=== PATIENT | female | born 1990 | race African-American/Black ===

== ENCOUNTER 2024-06-20 14:34 | Inpatient (IN) | payer OTHER ==
[~2024-06-20] VITALS: Ht 154.9 cm; Wt 61.7 kg
[2024-06-20 15:53] VITALS: TEMP 99
[2024-06-20 16:31] LABS: CLARITY,URINE HAZY (CLEAR); COLOR,URINE YELLOW (YELLOW)
[2024-06-20 16:32] LABS: BILIRUBIN,URINE NEGATIVE (NEGATIVE); GLUCOSE, URINE NEGATIVE (NEGATIVE); KETONES,URINE TRACE (NEGATIVE); LEUKOCYTE ESTERASE ,URINE NEGATIVE (NEGATIVE); NITRITE,URINE NEGATIVE (NEGATIVE); PH,URINE 6 (5 - 7); PROTEIN,URINE DIPSTICK TRACE (NEGATIVE); URINE UROBILINOGEN 1 mg/dL (0.2 - 1)
[2024-06-20 16:34] LABS: BACTERIA,URINE FEW /HPF; EPITHELIAL CELLS,URINE FEW /LPF; PREGNANCY TEST, URINE NEGATIVE (NEGATIVE)
[2024-06-20 16:52] LABS: ALBUMIN/GLOBULIN RATIO 1.1 (0.8-2.0); ANION GAP 12.9 mmol/L (8-16); BILIRUBIN,TOTAL 0.3 mg/dL (0.2-1.2); CALCIUM 9.3 mg/dL (8.4-10.2); CREATININE, SERUM 0.7 mg/dL (0.57-1.11); POTASSIUM 3.9 mmol/L (3.5-5.1); TOTAL PROTEIN 7.8 g/dL (6.5-8.1)
[2024-06-20] MEDS ORDERED: IOPAMIDOL 370 MG/ML 100 ML INFUS..BTL INJ ONE (16:53)
[2024-06-20 16:59] LABS: BASOPHILS % 0.5 % (0.0-1.0); EOSINOPHILS # (AUTO) 0.2 (0.0-0.4); EOSINOPHILS % 2.7 % (0.0-6.0); LYMPHOCYTES # (AUTO) 2.8 (1.0-3.2); LYMPHOCYTES % 31.5 % (18.0-39.1); MEAN CORPUSCULAR HEMOGLOBIN 16.3 pg (28-32); MEAN CORPUSCULAR HGB CONC 25.1 g/dL (31-35); MONOCYTES # (AUTO) 0.7 (0.2-0.8); MONOCYTES % 7.4 % (4.4-11.3); NEUTROPHILS % 57.6 % (38.7-80.0); RED BLOOD COUNT 3.37 x10e6/uL (3.6-5.1); RED CELL DISTRIBUTION WIDTH 27.9 % (11.7-14.4); WHITE BLOOD COUNT 8.74 x10e3/uL (4.8-10.8)
[2024-06-20 17:05] LABS: HEMATOCRIT 21.9 % (34.2-44.1); HEMOGLOBIN 5.5 g/dL (12.0-16.0); PLATELET COUNT 20 x10e3/uL (140-360)
[2024-06-20] MEDS: SODIUM CHLORIDE 0.9% 1000ML 1,000 ML IV ONE (17:06)
[2024-06-20 17:43] LABS: PLATELET CLUMPS FEW; PLATELET ESTIMATE MARKEDLY DECREASED
[2024-06-20 17:45] LABS: HYPOCHROMASIA MODERATE; PLATELET MORPHOLOGY COMMENT NORMAL
[2024-06-20 17:46] LABS: ANISOCYTOSIS MODERATE; MICROCYTOSIS MODERATE; POIKILOCYTOSIS MODERATE; TEAR DROP CELLS FEW
[2024-06-20 17:53] LABS: ROULEAU FEW
[2024-06-20 17:55] LABS: ELLIPTOCYTE, RBC SLIGHT; RBC MORPHOLOGY COMMENT ABNORMAL
[2024-06-20] MEDS ORDERED: ONDANSETRON HCL INJ 2MG/ML 2ML 2 MG/ML VIAL IV PRN (18:00)
[2024-06-20 18:16] LABS: % IRON SATURATION 5 % (15-50); IRON 27 ug/dL (50-170); TOTAL IRON BINDING CAPACITY 546 ug/dL (261-478); TRANSFERRIN 390 mg/dL (180-382)
[2024-06-20 18:30] VITALS: PULSE 60; RESP 16; RESP 20; O2SAT 100
[2024-06-20] MEDS: THIAMINE HCL INJ 100 MG/ML 2ML VIAL IV ONE (18:33)
[2024-06-20 18:52] LABS: FOLATE 6.8 ng/mL (7.0-15.4)
[2024-06-20 21:00] VITALS: BP 105/57; PULSE 70; RESP 18; TEMP 98.3; O2SAT 100
[2024-06-20 21:22] VITALS: BP 105/57; PULSE 70; RESP 18; TEMP 98.3; O2SAT 100
[2024-06-21] VITALS (10 sets, daily range): BP systolic 92–112; BP diastolic 61–86; PULSE 50–96; RESP 17–22; TEMP 98–98.5; O2SAT 97–100
[2024-06-21] MEDS ORDERED: MULTIVITAMINS- 12 INJECTION 10 ML, FOLIC ACID MDV 1 MG, THIAMINE HCL INJ 100 MG in SODI... IV SCH (01:30)
[2024-06-21] MEDS ORDERED: POTASSIUM CHLORIDE 20 MEQ TAB CR PO PRN (01:30)
[2024-06-21] MEDS ORDERED: HYDRALAZINE HCL 20 MG/ML VIAL IV PRN (01:30)
[2024-06-21] MEDS ORDERED: DEXTROSE 50% SYRINGE 50 ML IV PRN (01:30)
[2024-06-21] MEDS ORDERED: BENZONATATE 100 MG CAP PO PRN (01:30)
[2024-06-21] MEDS ORDERED: DOCUSATE SODIUM 100 MG CAP PO PRN (01:30)
[2024-06-21] MEDS ORDERED: ALBUTEROL/IPRATROPIUM 3 ML NEB NEB PRN (01:30)
[2024-06-21] MEDS ORDERED: MELATONIN 5 MG TABLET PO PRN (01:30)
[2024-06-21] MEDS ORDERED: SIMETHICONE 80 MG CHEW PO PRN (01:30)
[2024-06-21] MEDS ORDERED: DIPHENHYDRAMINE HCL 25 MG CAP PO PRN (01:30)
[2024-06-21] MEDS ORDERED: LIDOCAINE 4% PATCH TP PRN (01:30)
[2024-06-21] MEDS: MULTIVITAMINS- 12 INJECTION 10 ML, FOLIC ACID MDV 5 MG, THIAMINE HCL INJ 500 MG in SODI... IV SCH (01:45)
[2024-06-21] MEDS: Morphine 2mg Syringe 2 MG/ML SYR IV PRN (02:46)
[2024-06-21] MEDS: IRON SUCROSE 100 MG in SODIUM CHLORIDE 0.9% 100 ML IV SCH (05:04)
[2024-06-21] MEDS: FOLIC ACID/CYANOCOB/PYRIDOXINE TAB PO SCH (08:30)
[2024-06-21] MEDS: SODIUM CHLORIDE 0.9% 250ML 250 ML IV ONE ×2 (08:36)
[2024-06-21] MEDS ORDERED: MULTIVITAMINS- 12 INJECTION 10 ML, FOLIC ACID MDV 5 MG, THIAMINE HCL INJ 500 MG in SODI... IV SCH (10:00)
[2024-06-21] MEDS: MULTIVITAMINS- 12 INJECTION 10 ML, FOLIC ACID MDV 1 MG, THIAMINE HCL INJ 100 MG in SODI... IV SCH (10:26)
[2024-06-21] MEDS: SODIUM CHLORIDE 0.9% 250ML 250 ML ONE (14:10)
[2024-06-22] VITALS (9 sets, daily range): BP systolic 96–118; BP diastolic 67–82; PULSE 51–70; RESP 16–19; TEMP 98.1–98.4; O2SAT 95–100
[2024-06-22 00:49] LABS: BASOPHILS # (AUTO) 0.1 (0.0-0.1); BASOPHILS % 0.5 % (0.0-1.0); EOSINOPHILS # (AUTO) 0.5 (0.0-0.4); EOSINOPHILS % 4.5 % (0.0-6.0); HEMATOCRIT 32.9 % (34.2-44.1); LYMPHOCYTES # (AUTO) 2.7 (1.0-3.2); LYMPHOCYTES % 26.8 % (18.0-39.1); MEAN CORPUSCULAR HEMOGLOBIN 21.6 pg (28-32); MEAN CORPUSCULAR HGB CONC 30.4 g/dL (31-35); MONOCYTES # (AUTO) 0.6 (0.2-0.8); MONOCYTES % 5.6 % (4.4-11.3); NEUTROPHILS # (AUTO) 6.2 (2.1-6.9); NEUTROPHILS % 61.3 % (38.7-80.0); PLATELET COUNT 61 x10e3/uL (140-360); RED BLOOD COUNT 4.62 x10e6/uL (3.6-5.1); RED CELL DISTRIBUTION WIDTH 29.9 % (11.7-14.4); WHITE BLOOD COUNT 10.09 x10e3/uL (4.8-10.8)
[2024-06-22 00:58] LABS: MEAN CORPUSCULAR VOLUME 71.2 fL (81-99)
[2024-06-22 01:14] LABS: ANION GAP 10.4 mmol/L (8-16); CALCIUM 8.3 mg/dL (8.4-10.2); CREATININE, SERUM 0.64 mg/dL (0.57-1.11)
[2024-06-22 01:25] LABS: POTASSIUM 3.4 mmol/L (3.5-5.1)
[2024-06-22] MEDS: SODIUM CHLORIDE 0.9% 1000ML 1,000 ML IV SCH (05:37)
[2024-06-22 06:40] LABS: BASOPHILS # (AUTO) 0.1 (0.0-0.1); BASOPHILS % 0.6 % (0.0-1.0); EOSINOPHILS # (AUTO) 0.5 (0.0-0.4); EOSINOPHILS % 4.7 % (0.0-6.0); HEMATOCRIT 31.6 % (34.2-44.1); LYMPHOCYTES # (AUTO) 2.8 (1.0-3.2); LYMPHOCYTES % 25.4 % (18.0-39.1); MEAN CORPUSCULAR HEMOGLOBIN 21.7 pg (28-32); MEAN CORPUSCULAR HGB CONC 30.1 g/dL (31-35); MEAN CORPUSCULAR VOLUME 72.3 fL (81-99); MONOCYTES # (AUTO) 0.8 (0.2-0.8); NEUTROPHILS # (AUTO) 6.7 (2.1-6.9); NEUTROPHILS % 61.3 % (38.7-80.0); RED BLOOD COUNT 4.37 x10e6/uL (3.6-5.1); RED CELL DISTRIBUTION WIDTH 29.9 % (11.7-14.4); WHITE BLOOD COUNT 10.97 x10e3/uL (4.8-10.8)
[2024-06-22 06:48] LABS: PLATELET COUNT 59 x10e3/uL (140-360)
[2024-06-22 06:49] LABS: HEMOGLOBIN 9.5 g/dL (12.0-16.0)
[2024-06-22 07:04] LABS: ANION GAP 9.6 mmol/L (8-16); BLOOD UREA NITROGEN < 5 mg/dL (7-26); CALCIUM 8.3 mg/dL (8.4-10.2); CARBON DIOXIDE 20 mmol/L (22-29); CHLORIDE 112 mmol/L (98-107); EST GLOMERULAR FILTRATION RATE 121 ML/MIN (>=60); GLUCOSE 75 mg/dL (74-118); MAGNESIUM 1.6 MG/DL (1.3-2.1); PHOSPHORUS 2.9 MG/DL (2.3-4.7); POTASSIUM 3.6 mmol/L (3.5-5.1); SODIUM 138 mmol/L (136-145)
[2024-06-22 07:10] LABS: BUN/CREATININE RATIO 8 (6-25)
[2024-06-22 07:26] LABS: THYROID STIMULATING HORMONE 1.529 uIU/mL (0.350-4.940)
[2024-06-22 10:48] LABS: ANISOCYTOSIS MARKED; MICROCYTOSIS MODERATE; PLATELET ESTIMATE MARKEDLY DECREASED; PLATELET MORPHOLOGY COMMENT NORMAL; RBC MORPHOLOGY COMMENT ABNORMAL
[2024-06-22 10:49] LABS: HYPOCHROMASIA MODERATE; POLYCHROMASIA FEW
[2024-06-22] MEDS: MULTIVITAMINS- 12 INJECTION 10 ML, FOLIC ACID MDV 1 MG, THIAMINE HCL INJ 100 MG in SODI... IV SCH (13:13)
[2024-06-22 14:53] LABS: INR 1.11
[2024-06-22 14:54] LABS: PARTIAL THROMBOPLASTIN TIME 36.2 seconds (23.8-35.5)
[2024-06-22 15:19] LABS: FERRITIN 81.09 ng/mL (4.63-204.00)
[2024-06-23] VITALS (10 sets, daily range): BP systolic 100–133; BP diastolic 66–89; PULSE 43–67; RESP 17–18; TEMP 98.1–98.4; O2SAT 98–100
[2024-06-23 05:29] LABS: BASOPHILS # (AUTO) 0.1 (0.0-0.1); BASOPHILS % 0.6 % (0.0-1.0); EOSINOPHILS # (AUTO) 0.5 (0.0-0.4); EOSINOPHILS % 4.9 % (0.0-6.0); HEMATOCRIT 32.8 % (34.2-44.1); HEMOGLOBIN 9.8 g/dL (12.0-16.0); LYMPHOCYTES # (AUTO) 2.4 (1.0-3.2); LYMPHOCYTES % 23.2 % (18.0-39.1); MEAN CORPUSCULAR HEMOGLOBIN 21.6 pg (28-32); MEAN CORPUSCULAR HGB CONC 29.9 g/dL (31-35); MEAN CORPUSCULAR VOLUME 72.2 fL (81-99); MONOCYTES # (AUTO) 0.7 (0.2-0.8); MONOCYTES % 6.5 % (4.4-11.3); NEUTROPHILS # (AUTO) 6.6 (2.1-6.9); NEUTROPHILS % 64.3 % (38.7-80.0); PLATELET COUNT 81 x10e3/uL (140-360); RED BLOOD COUNT 4.54 x10e6/uL (3.6-5.1); RED CELL DISTRIBUTION WIDTH 31.1 % (11.7-14.4); WHITE BLOOD COUNT 10.22 x10e3/uL (4.8-10.8)
[2024-06-23 06:05] LABS: ANION GAP 9.4 mmol/L (8-16); BLOOD UREA NITROGEN < 5 mg/dL (7-26); CALCIUM 8.2 mg/dL (8.4-10.2); CARBON DIOXIDE 20 mmol/L (22-29); CHLORIDE 112 mmol/L (98-107); CREATININE, SERUM 0.62 mg/dL (0.57-1.11); EST GLOMERULAR FILTRATION RATE 121 ML/MIN (>=60); GLUCOSE 75 mg/dL (74-118); SODIUM 138 mmol/L (136-145)
[2024-06-23 06:06] LABS: BUN/CREATININE RATIO 8 (6-25); POTASSIUM 3.4 mmol/L (3.5-5.1)
[2024-06-23 06:43] LABS: HEPATITIS A ANTIBODY IGM (P) Negative; HEPATITIS B CORE IGM (P) Negative; HEPATITIS B SURFACE AG (P) Negative
[2024-06-23 06:44] LABS: HEPATITIS C ANTIBODY Non Reactive
[2024-06-23] MEDS: ACETAMINOPHEN 325 MG TAB PO PRN (09:42)
[2024-06-23 12:32] LABS: PLATELET ESTIMATE MODERATELY DECREASED
[2024-06-23 12:33] LABS: ANISOCYTOSIS MARKED; HYPOCHROMASIA MODERATE; MICROCYTOSIS MODERATE; OVALOCYTES FEW; PLATELET MORPHOLOGY COMMENT NORMAL; POLYCHROMASIA FEW
[2024-06-23 12:34] LABS: RBC MORPHOLOGY COMMENT ABNORMAL
[2024-06-23] MEDS ORDERED: PROPOFOL IV EMULSION 50 ML IV ONE (17:59)
[2024-06-23] MEDS ORDERED: FENTANYL CITRATE/PF 100MCG/2 ML INJ ONE (18:07)
[2024-06-24] VITALS (7 sets, daily range): BP systolic 95–127; BP diastolic 68–97; PULSE 46–92; RESP 16–18; TEMP 97.5–98.8; O2SAT 91–100
[2024-06-24] MEDS: PANTOPRAZOLE SOD 40 MG TABEC PO SCH (09:13)
[2024-06-24] MEDS ORDERED: PANTOPRAZOLE SO40 MG PO (14:21)
== END 2024-06-24 15:30 | disposition home or self-care (01) | DRG 812 ==
LOC: ER 16:44 → ERHOLD 17:59 → MED/SURG2 20:53
PROVIDERS: ADMIT Internal Medicine; ATTEND Internal Medicine
PROC: 30233N1 Transfusion of Nonautologous Red Blood Cells into Peripheral Vein, Percutaneous Approach (ICD-10-PCS; 2024-06-20)
PROC: 30233R1 Transfusion of Nonautologous Platelets into Peripheral Vein, Percutaneous Approach (ICD-10-PCS; 2024-06-21)
PROC: 0DB68ZX Excision of Stomach, Via Natural or Artificial Opening Endoscopic, Diagnostic (ICD-10-PCS; principal; 2024-06-23 18:03)
DX: D50.9 Iron deficiency anemia, unspecified (principal); E46 Unspecified protein-calorie malnutrition; D69.6 Thrombocytopenia, unspecified; K29.60 Other gastritis without bleeding; R10.13 Epigastric pain; E53.8 Deficiency of other specified B group vitamins; D72.829 Elevated white blood cell count, unspecified; Z98.84 Bariatric surgery status; Z68.25 Body mass index [BMI] 25.0-25.9, adult
CPT/HCPCS: 36415; 43239; 74177; 80048; 80053; 81001; 81025; 82607; 82728; 82746; 83010; 83540; 83615; 83735; 84100; 84443; 84466; 84484; 85025; 85045; 85610; 85730; 86850; 86900; 86920; 88305; 88342; 94799; 99284; J1756; J2270; J2470; J3411; J7030; J7050; P9016; P9034; Q9967